=== PATIENT | female | born 1955 | race Caucasian/White ===

== ENCOUNTER 2016-07-05 09:12 | Emergency (ER) | payer OTHER ==
[~2016-07-05] VITALS: Ht 165.1 cm; Wt 70.9 kg
[~2016-07-05 09:12] MED LIST: ALPRAZOLAM0.5 MG PO; AMITRIPTYLINE H25 MG PO; AMITRIPTYLINE H50 MG PO; ATARAX,VISTARIL25 MG PO; BUSPAR PO; BUSPAR10 MG PO; CYMBALTA20 MG PO; EFFEXOR PO; EFFEXOR XR150 MG PO; ERYTHROMYCIN ETHYLSUCCINATE PO; FUROSEMIDE20 MG PO; LIDODERM 5% P1 PATCH TD; LUNESTA PO; LUNESTA3 MG PO; LYRICA50 MG PO; METAXALONE800 MG PO; MIRALAX17 GM PO; MURO-128 5300 DROP/1 BOTH EYES; NEXIUM20 MG PO; NEXIUM40 MG PO; NUCYNTA75 MG PO; Nucynta PO; OXYCONTIN10 MG PO; PLAQUENIL200 MG PO; PREVACID30 MG PO; SAVELLA1 EACH; Tums PO; XANAX PO; XANAX0.5 MG PO; XIFAXAN550 MG PO; ZANAFLEX4 M1 PO; [UNRECOGNIZED DRUG - CODE] PO
[2016-07-05] MEDS ORDERED: OCUFLOX 0.100 DROP/5 RIGHT EYE (10:17)
[2016-07-05 10:30] VITALS: BP 115/75
== END 2016-07-05 10:31 | disposition home or self-care (01) ==
LOC: EXP 09:12 → EME 09:12 → EXP 10:31
DX: S05.01XA Injury of conjunctiva and corneal abrasion without foreign body, right eye, initial encounter (principal); X50.9XXA Other and unspecified overexertion or strenuous movements or postures, initial encounter; L93.0 Discoid lupus erythematosus; Z88.0 Allergy status to penicillin
CPT/HCPCS: 99281; 99284

== ENCOUNTER 2016-07-05 20:56 | Emergency (ER) | payer OTHER ==
[~2016-07-05] VITALS: Ht 165.1 cm; Wt 71.4 kg
[~2016-07-05 20:56] MED LIST changes: +OCUFLOX 0.100 DROP/5 RIGHT EYE
[2016-07-05 23:23] VITALS: BP 110/71
== END 2016-07-05 23:24 | disposition home or self-care (01) ==
LOC: EME 20:56
DX: S05.01XA Injury of conjunctiva and corneal abrasion without foreign body, right eye, initial encounter (principal); X58.XXXA Exposure to other specified factors, initial encounter; G89.29 Other chronic pain
CPT/HCPCS: 99281; 99284

== ENCOUNTER 2017-03-18 18:05 | Emergency (ER) | payer OTHER ==
[~2017-03-18] VITALS: Ht 165.1 cm; Wt 70.1 kg
[2017-03-18 20:53] LABS: HEMATOCRIT 40.2 % (36.0-46.0); MCH 29.5 PG (29.0-34.0); MCHC 32.1 G/DL (30.0-36.0); MCV 91.8 FL (83-99); MEAN PLAT.VOLUME 10.8 uM^3 (9.5-12.4); PLATELET COUNT 213 K/uL (156-360); RBC DIS.WIDTH-CV 12.5 % (11.8-14.6); RBC DIS.WIDTH-SD 42.1 % (39-53); RED BLOOD COUNT 4.38 M/uL (3.80-5.20); WHITE BLOOD COUNT 5.8 K/uL (4.1-10.2)
[2017-03-18 21:06] LABS: CHLORIDE 105 mEq/L (99-109); POTASSIUM 4.2 mEq/L (3.7-5.4); SODIUM 140 mEq/L (136-147)
[2017-03-18 21:08] LABS: GLUCOSE 120 mg/dL (70-99)
[2017-03-18 21:09] LABS: ANION GAP 9 MEQ/L (2-14)
[2017-03-18 21:10] LABS: TOTAL BILIRUBIN 0.1 mg/dL (0.0-1.0)
[2017-03-18 21:12] LABS: ALKALINE PHOSPHATASE 94 IU/L (3-129); GFR ESTIMATE (CALCULATED) > 59 mL/min/
[2017-03-18 21:13] LABS: UREA NITROGEN (BUN) 9 mg/dL (9-23)
[2017-03-18 21:15] LABS: TROP-I INTERPRETATION NEGATIVE; TROPONIN-I < 0.01 ng/mL (0.0-0.30)
[2017-03-18 23:42] LABS: TROP-I INTERPRETATION NEGATIVE; TROPONIN-I < 0.01 ng/mL (0.0-0.30)
[2017-03-18 23:51] VITALS: BP 113/70
== END 2017-03-18 23:51 | disposition home or self-care (01) ==
LOC: EME 18:05
PROVIDERS: Physician Assistant
DX: J06.9 Acute upper respiratory infection, unspecified (principal); R07.9 Chest pain, unspecified; M32.9 Systemic lupus erythematosus, unspecified; K21.9 Gastro-esophageal reflux disease without esophagitis; M79.7 Fibromyalgia; Z88.0 Allergy status to penicillin
CPT/HCPCS: 71020; 80053; 84484; 85027; 93005; 99281; 99283; J3010